=== PATIENT | female | born 1990 | race Caucasian/White ===

== ENCOUNTER 2016-12-21 23:34 | Emergency (ER) | payer BC ==
[~2016-12-21] VITALS: Ht 160 cm; Wt 71.4 kg
[2016-12-21 23:46] VITALS: TEMP 36.5; Ht 160 cm; Wt 71.4 kg
[2016-12-21] MEDS ORDERED: AMOXICILLIN 250 MG CAP PO STA (23:57)
[2016-12-22] MEDS ORDERED: OXYCODONE IR HOME PACK PO ONE
[2016-12-22] MEDS ORDERED: AMOX500C3 PO (00:04)
[2016-12-22] MEDS ORDERED: OXYC1TAB3 PO (00:04)
[2016-12-22 00:35] VITALS: BP 104/69; PULSE 61; O2SAT 98
--- NOTE | 2016-12-22 03:42 | EMERGENCY ROOM VISIT NOTE ---
History First contact with patient: 23:50 Chief Complaint: NECK PAIN Stated Complaint: JAW/NECK PAIN AND HEAD PAIN History of Present Illness The patient is a 26 year old female who presents to the Emergency Room with complaints of right-sided ear and dental pain and facial pain for the past few days who knows that she needs to finish off her root canal and has not done so in several months. She describes pain as aching, ranging in severity 7 out of 10 worse with chewing and better with rest. Patient denies neck stiffness, cough, congestion, sore throat, headache, facial swelling, dysphagia. She is tolerate by mouth fluids and food. She tried Motrin and Tylenol with minimal improvement of symptoms. Review of Systems See HPI for pertinent positives & negatives. A total of 10 systems reviewed and were otherwise negative. Past Medical/Surgical History None Social History Smoking Status: Never Smoker Smokeless Tobacco Use: No Alcohol Use: occasionally Drug Use: none Occupation Status: employed Current/Historical Medications Scheduled Amoxicillin (Amoxil), 500 MG PO TID Scheduled PRN Oxycodone Immediate Rel Tab (Roxicodone Ir), 1-2 TAB PO Q4H PRN for Severe Pain Allergies Coded Allergies: No Known Allergies (Unverified , 12/22/16) Physical Exam Vital Signs Date Time Temp Pulse Resp B/P (MAP) Pulse Ox O2 Delivery O2 Flow Rate FiO2 12/22/16 00:35 61 18 104/69 98 Room Air 12/21/16 23:46 36.5 96 16 135/92 96 Room Air Pain Rating (0-10): 4.0 Physical Exam VITALS: Vitals are noted on the nurse's note and reviewed by myself. Vital signs stable. GENERAL: Pleasant female in no acute distress, nondiaphoretic, well-developed well-nourished. SKIN: The skin was without rashes, erythema, edema, or bruising. There is no tenting of the skin. Capillary reflex less than 2 seconds. HEAD: Normocephalic atraumatic. EARS: External auditory canals clear, tympanic membranes pearly [place] without erythema or effusion bilaterally. EYES: Pupils equal round and reactive to light and accommodation. Conjunctivae without injection, sclerae without icterus. Extraocular movements intact. NOSE: Patent, turbinates without inflammation or discharge. No sinus tenderness. MOUTH: Mucous membranes moist. Pharynx without erythema or exudate. Uvula midline. Airway patent. Tongue does not deviate. No Veto angina Dental exam: Right upper second molar tender to palpation with no palpable abscess. Overall dental hygiene fair NECK: Supple without nuchal rigidity. No lymphadenopathy. No thyromegaly. Cervical spine is nontender. No JVD. No meningeal signs HEART: Regular rate and rhythm without murmurs gallops or rubs. LUNGS: Clear to auscultation bilaterally without wheezes, rales or rhonchi. No dullness to percussion. No retractions or accessory muscle use. ABDOMEN: Positive bowel sounds x 4. Normal tympanic percussion. Soft, nontender, without masses or organomegaly. Meyer sign negative. No guarding or rebound tenderness. MUSCULOSKELETAL: No muscle atrophy, erythema, or edema noted. NEURO: Patient was alert and oriented to person place and time. Normal sensation to light and sharp touch. No focal neurological deficits. Medical Decision & Procedures Medications Administered Medications (Trade) Dose Ordered Sig/Phyllis Route Start Time Stop Time Status Last Admin Dose Admin Amoxicillin (Amoxil Cap) 500 mg NOW STAT PO 12/21/16 23:57 12/21/16 23:59 DC 12/22/16 00:43 500 MG Oxycodone HCl (Roxicodone Immediate Rel 5MG Home Pack) 1 homepack UD ONCE PO 12/22/16 00:00 12/22/16 00:01 DC 12/22/16 00:44 1 HOMEPACK ED Course Prior records reviewed and summarized as above. Triage Nursing notes reviewed. The patient's history was concerning for dental pain Differential diagnosis: Etiologies such as cellulitis, abscess, gingivitis, Veto angina, cavity, as well as others were entertained.. Physical examination: The physical examination was consistent with dental pain from dental caries ER treatment provided: Amoxicillin, OxyIR On reassessment the patient felt better. Diagnostics interpreted by me: Deferred This appears to be isolated dental pain from dental caries. Patient was counseled on proper dental hygiene and verbalized understanding this. She is advised to see her dentist as soon as possible for dental care for her ongoing dental issues. She was started on antibiotics. She is advised to return to the ER immediately for fevers, facial swelling, neck stiffness, worsening signs or symptoms or as needed. Patient was neurovascularly and neurologically intact. No signs of airway compromise, meningitis or Veto angina. By the evaluation outlined above emergent etiologies such as abscess, Veto angina as well as others were deemed relatively unlikely. The pt informed about the findings as listed above. All questions were answered and pleased with the treatment. Return instructions were outlined and the patient was discharged in stable condition. Outpatient prescription management: Oxacillin, OxyIR Referral: The patient was referred back to dentist for follow-up in 2 to 3 days for a recheck of the current condition. Medical Decision As above [place] Drug Monitoring Program Search Results: patient reviewed within database, no issues identified Impression Primary Impression: Dental caries Additional Impression: Pain, dental Departure Information Dispostion Home / Self-Care Condition GOOD Prescriptions Amoxicillin (AMOXIL) 500 Mg Cap 500 MG PO TID for 10 Days, #30 CAP Prov: Flaquita Walls PA-C 12/22/16 Oxycodone Immediate Rel Tab (ROXICODONE IR) 5 Mg Tab 1-2 TAB PO Q4H Y for Severe Pain, #15 TAB initial course Prov: Flaquita Walls PA-C 12/22/16 Forms WORK / SCHOOL INSTRUCTIONS, HOME CARE DOCUMENTATION FORM, IMPORTANT VISIT INFORMATION Patient Instructions [facility], ED [facility] Additional Instructions Amoxicillin 500mg: Take one pill 3 times daily for 10 days for your infection. All antibiotics can cause diarrhea. If this occurs and you feel worse or it does not resolve in 1-2 days follow up with your doctor or return to the Emergency Department as this could be signs of serious underlying problems. Any medication can cause an allergic reaction, stop the pills immediately and return to the ER for rash, hives, breathing difficulties, or swelling. Oxycodone (OxyIR) 5mg: Take 1-2 pills every four hours for breakthrough pain. Avoid alcohol, operating machinery or dangerous equipment, working on ladders or roofs, DRIVING, or situations where being under the influence may be dangerous. It is recommended to use an [id number] stool softener such as Colace, 100mg twice daily while taking this medication to avoid constipation. Ibuprofen(Motrin, Advil) may be used for fever or pain. Use 600mg every six hours as needed. Take with food. Avoid using more than 2400mg in a 24 hour period. Do not use 2400mg per day for more than three consecutive days without physician direction. Prolonged inappropriate use can lead to stomach upset or ulcers. This medication can be taken if you need to drive, work, or perform activities which may be dangerous when taking narcotic pain medication. (AND/OR) Acetaminophen(Tylenol) may be used for fever or pain. Use 1000mg every six hours as needed. Avoid using more than 3000mg in a 24 hour period. This medication can be taken if you need to drive, work, or perform activities which may be dangerous when taking narcotic pain medication. [place] teeth twice a day, floss daily and do warm saltwater gargles 3 times a day. See a dentist as soon as possible for definitive care for your dental problem. Return to ER sooner for facial swelling, fever, redness, worsening signs or symptoms or as needed. Problem Qualifiers
== END 2016-12-22 00:51 | disposition home or self-care (01) ==
LOC: C.EDB 23:35
DX: K02.9 Dental caries, unspecified (principal); K08.89 Other specified disorders of teeth and supporting structures